=== PATIENT | male | born 1950 | race Caucasian/White ===

== ENCOUNTER 2024-10-08 21:20 | Emergency (ER) | payer MEDICARE ==
[~2024-10-08] VITALS: Wt 52.6 kg
== END 2024-10-08 23:07 | disposition home or self-care (01) ==
LOC: ED 21:20
DX: K94.23 Gastrostomy malfunction (principal); I10 Essential (primary) hypertension; E11.9 Type 2 diabetes mellitus without complications

== ENCOUNTER → 2024-10-22 | Outpatient (CLI) | payer MEDICARE | END | disposition home or self-care (01) | LOC: CT 01:44 | PROVIDERS: ATTEND Specialist | DX: R91.8 Other nonspecific abnormal finding of lung field (principal); J90 Pleural effusion, not elsewhere classified; I25.10 Atherosclerotic heart disease of native coronary artery without angina pectoris; C15.4 Malignant neoplasm of middle third of esophagus; R59.0 Localized enlarged lymph nodes; Z98.890 Other specified postprocedural states ==